=== PATIENT | female | born 1985 | race African-American/Black ===

== ENCOUNTER 2020-05-09 05:00 | Emergency (ER) | payer SELFPAY ==
[~2020-05-09] VITALS: Ht 167.6 cm; Wt 80.3 kg
[2020-05-09 05:15] VITALS: BP 106/68
[2020-05-09] MEDS ORDERED: hydrOXYchloroQUINE SULFATE 200 MG TAB PO ONE (06:45)
== END 2020-05-09 09:30 | disposition home or self-care (01) ==
LOC: ER 05:00
DX: U07.1 COVID-19 (principal)
CPT/HCPCS: 71045; 99284; U0003